=== PATIENT | female | born 1985 | race Caucasian/White ===

== ENCOUNTER 2017-01-18 13:09 | Emergency (ER) | payer OTHER ==
[2017-01-18 13:16] VITALS: BP 141/90
--- NOTE | 2017-01-18 14:34 | UC ---
UC General HPI - HPI Summary HPI Summary: complaint of rash on both thighs since 02/12 extremely itchy- has bed bugs in the house felt nauseated geneailzed abdominal pain yesterday vomiting and diarrhea that started this morning denies any blood in stool LMP currently denies dysuria denies fever but has felt chills today not taking any medication for symptoms - History of Current Complaint Hx Obtained From: Patient <Betsy Swartz - Last Filed: 01/18/17 14:29> <Yarelis Berg - Last Filed: 01/19/17 08:15> - History of Current Complaint Chief Complaint: UCGeneralIllness Stated Complaint: VOMITING Time Seen by Provider: 01/18/17 14:25 - Allergy/Home Medications Allergies/Adverse Reactions: Allergies Allergy/AdvReac Type Severity Reaction Status Date / Time Amoxicillin Allergy Intermediate Hives Verified 01/18/17 13:16 Penicillins Allergy Intermediate Hives Verified 01/18/17 13:16 Valproic Acid [From Depakote] Allergy Hives Verified 01/18/17 13:16 bee stings Allergy Severe Anaphylatic Uncoded 01/18/17 13:16 Shock PMH/Surg Hx/FS Hx/Imm Hx Previously Healthy: Yes Psychological History: Bipolar Disorder - Surgical History Surgical History: Yes Surgery Procedure, Year, and Place: Surgery on her Labia - Family History Known Family History: Positive: Unknown, Hypertension Negative: Diabetes - Social History Occupation: Disabled Lives: With Family Alcohol Use: None Substance Use Type: None, Marijuana Substance Use Comment - Amount & Last Used: ONCE A WEEK Smoking Status (MU): Current Every Day Smoker Type: Cigarettes Amount Used/How Often: 1 ppd Length of Time of Smoking/Using Tobacco: 11 years Have You Smoked in the Last Year: Yes Cessation Counseling: Patient Advised to Stop - Immunization History Most Recent Influenza Vaccination: unknown Most Recent Tetanus Shot: unknown Most Recent Pneumonia Vaccination: unknown <Betsy Swartz - Last Filed: 01/18/17 14:29> Review of Systems Constitutional: Chills Skin: Rash Eyes: Negative ENT: Negative Respiratory: Negative Cardiovascular: Negative Gastrointestinal: Vomiting, Diarrhea, Nausea Genitourinary: Negative Motor: Negative Neurovascular: Negative Musculoskeletal: Negative Neurological: Negative Psychological: Negative All Other Systems Reviewed And Are Negative: Yes <Betsy Swartz - Last Filed: 01/18/17 14:29> Physical Exam Triage Information Reviewed: Yes Appearance: No Pain Distress, Well-Nourished, Obese Vital Signs: Initial Vital Signs Temp 98.0 F 01/18/17 13:10 Pulse 80 01/18/17 13:10 Resp 20 01/18/17 13:10 BP 141/90 01/18/17 13:10 Pulse Ox 98 01/18/17 13:10 Vital Signs Reviewed: Yes Eyes: Positive: Conjunctiva Clear ENT: Positive: Pharynx normal, TMs normal Neck: Positive: No Lymphadenopathy Respiratory: Positive: Lungs clear, Normal breath sounds, No respiratory distress, No accessory muscle use Cardiovascular: Positive: RRR, No Murmur, Pulses Normal, Brisk Capillary Refill Abdomen Description: Positive: Nontender, No Organomegaly, Soft. Negative: CVA Tenderness (R), CVA Tenderness (L), Distended, Guarding Bowel Sounds: Positive: Hyperactive Musculoskeletal: Positive: No Edema Neurological: Positive: Alert Psychological Exam: Normal Skin: Positive: Other - both thighs with scattered pupules also on feet and arms <Betsy Swartz - Last Filed: 01/18/17 14:29> Vital Signs: Initial Vital Signs Temp 98.0 F 01/18/17 13:10 Pulse 80 01/18/17 13:10 Resp 20 01/18/17 13:10 BP 141/90 01/18/17 13:10 Pulse Ox 98 01/18/17 13:10 <Yarelis Berg - Last Filed: 01/19/17 08:15> Course/Dx - Course Course Of Treatment: exam completed. gastroenteritis- VSS -no point tenderness in abdomen- will treat with zofran and increase fluids- discussed s/s of when to seek emergent care. rash appears to be bed bug bites- will rx for benadryl cream to reduce itchiness - Differential Dx - Multi-Symptom Provider Diagnoses: gastroenteritis, bed bug bites, elevated blood pressure <Betsy Swartz - Last Filed: 01/18/17 14:29> Discharge <Betsy Swartz - Last Filed: 01/18/17 14:29> <Yarelis Berg - Last Filed: 01/19/17 08:15> - Discharge Plan Condition: Stable Disposition: HOME Prescriptions: Ondansetron TAB* [Zofran 4 MG Tab*] 4 mg PO Q6H PRN #12 tab PRN Reason: Nausea diPHENhydraMINE 2% CREAM(NF) [Benadryl 2% CREAM (NF)] 1 applic TOPICAL TID #1 tube Patient Education Materials: Bed Bugs (ED), Gastroenteritis (ED) Referrals: Su Peralta MD [Primary Care Provider] - Additional Instructions: Your blood pressure is elevated. Please contact your primary care provider within 1 -4 weeks for further evaluation. GASTROENTERITIS What is Gastroenteritis? Gastroenteritis is an inflammation of the stomach and bowel that is often called the stomach "flu.'' It should only last 1 or 2 days. You usually get gastroenteritis because you've been in contact with someone who's already infected or because you've eaten contaminated food, or drank contaminated water. Many different viruses can cause intestinal problems but the signs and symptoms are usually the same: watery diarrhea, abdominal cramps, and nausea or vomiting. Symptoms Might Include: Abdominal cramps Diarrhea Nausea Vomiting Blood or mucus in stools Muscle aches Headaches Fever Extreme exhaustion Treatment Recommendations: Decrease activity until you feel better or the diarrhea and vomiting are gone. Take clear liquids, such as xin nanci, cola, water, tea, broth, and gelatin, for the first 24 hours or until the diarrhea and vomiting stops. During the next 24 hours you may eat bland foods like cooked cereals, rice, soup, bread, crackers, baked potatoes, eggs, or applesauce. Do not eat fruits, vegetables, fried or spicy foods, bran, candy, dairy products (such as milk or ice cream), apple juice, or alcoholic beverages. You may go back to your normal diet after 2 to 3 days. Drink 8 to 12 glasses of liquid a day. Most of the problems with gastroenteritis are caused by loss of water through vomiting and diarrhea. You may take ibuprofen (Motrin, Advil) or acetaminophen (Tylenol) for fever and muscle aches. Call Your Doctor or Return Here IF: Your symptoms last for more than 3 days. You have severe pain in the abdomen (area around the stomach) or rectum. You have a high temperature. You find blood, mucus, or worms in your stool. You have signs of dehydration (water loss), including dry mouth, excessive thirst, crinkled skin, little or no urination, dizziness, or light-headedness. You have any other new symptoms that worry you. Attestation Statement User Type: Provider - I was available for consult. This patient was seen by the [facility]. The patient was not presented to, seen by, or examined by me. -Flores <Yarelis Berg - Last Filed: 01/19/17 08:15>
[2017-01-18] MEDS ORDERED: Ondansetron TAB* 4 MG PO ONE (14:36)
[2017-01-18] MEDS ORDERED: Ondansetron ODT TAB* 4 MG PO ONE (14:42)
== END 2017-01-18 14:49 | disposition home or self-care (01) ==
LOC: UCEAST 13:09
DX: K52.9 Noninfective gastroenteritis and colitis, unspecified (principal); T14.8 Other injury of unspecified body region; W57.XXXA Bitten or stung by nonvenomous insect and other nonvenomous arthropods, initial encounter; Y92.009 Unspecified place in unspecified non-institutional (private) residence as the place of occurrence of the external cause; R03.0 Elevated blood-pressure reading, without diagnosis of hypertension
CPT/HCPCS: 99212; A9270-GY; G0463

== ENCOUNTER 2022-06-24 16:28 | Inpatient (IN) ==
[2022-06-24 18:57] LABS: ABS Basophils 0.1 10^3/ul (0-0.2); ABS Eosinophils 0.3 10^3/ul (0-0.6); ABS Lymphocytes 3.1 10^3/ul (1.0-4.8); ABS Monocytes 0.5 10^3/ul (0-0.8); Hematocrit 40 % (35-47); Hemoglobin 12.9 g/dL (12.0-16.0); Lymphocyte % 34.4 %; Mean Corpuscular HGB Conc 33 g/dL (31-36); Mean Corpuscular Hemoglobin 28 pg (27-31); Mean Corpuscular Volume 86 fL (80-97); Mean Platelet Volume 10.5 fL (7.4-10.4); Nucleated Red Blood Cells % 0.1; Platelet Count 246 10^3/uL (150-450); Red Blood Count 4.64 10^6 /uL (3.70-4.87); Red Cell Distribution Width 13 % (10-15)
[2022-06-24 19:31] LABS: ALT 40 U/L (7-52); AST 33 U/L (13-39); Acetaminophen < 15 mcg/mL; Albumin 4.5 g/dL (3.2-5.2); Albumin/Globulin Ratio 1.9 (1-3); Alcohol, S < 13 mg/dL (<13); Alkaline Phosphatase 82 U/L (35-149); Anion Gap 7 mmol/L (2-11); Blood Urea Nitrogen 7 mg/dL (6-24); CO2 Carbon Dioxide 27 mmol/L (22-32); Calcium 9.5 mg/dL (8.6-10.3); Chloride 105 mmol/L (101-111); Globulin 2.4 g/dL (2-4); Glucose 88 mg/dL (70-100); Potassium 4.3 mmol/L (3.5-5.0); Salicylate < 2.50 mg/dL (<30); Sodium 139 mmol/L (135-145); Total Protein 6.9 g/dL (6.4-8.9); eGFR CKD-EPI 117.2 (>60)
[2022-06-24 19:45] LABS: TSH Ultra Thyroid Stim Horm 1.96 mcIU/mL (0.34-5.60)
[2022-06-25 00:24] LABS: Urine Appearance Clear; Urine Bilirubin Negative (Negative); Urine Blood Negative (Negative); Urine Color Yellow; Urine Glucose Negative (Negative); Urine Ketones Negative (Negative); Urine Nitrite Negative (Negative); Urine Protein Negative (Negative); Urine Urobilinogen 0.2 (Negative) (Negative); Urine pH 5.5 (5.0-9.0)
[2022-06-25 00:27] LABS: Urine Benzodiazepine Screen None Detected (None Detect); Urine Cannabinoids Screen None Detected (None Detect); Urine Opiates Screen None Detected (None Detect)
[2022-06-25] MEDS ORDERED: Nicotine PATCH 21 MG/24 HR PATCH TRANSDERM ONE (07:42)
[2022-06-25] MEDS ORDERED: Al Hydrox/Mg Hydrox/Simet LIQ 30 ML UDC PO PRN (09:51)
[2022-06-25] MEDS ORDERED: Nicotine GUM 4MG FRUIT FLAVOR PO PRN (10:00)
[2022-06-25] MEDS: Nicotine PATCH 21 MG/24 HR PATCH TRANSDERM SCH (13:59)
[2022-06-25] MEDS: chlorproMAZINE TAB 50 MG Q6H PRN AGITATION PO ×2 (14:20→23:13)
[2022-06-25] MEDS: Sulfamethox/Trimethoprim DS TAB 800/160 mg PO SCH (22:21)
[2022-06-26] MEDS: Sulfamethox/Trimethoprim DS TAB 800/160 mg PO SCH ×2 (07:32→20:53)
[2022-06-26] MEDS: Vitamin THERAPEUTIC TAB PO SCH (07:33)
[2022-06-26] MEDS: Nicotine PATCH 21 MG/24 HR PATCH TRANSDERM SCH (07:33)
[2022-06-26] MEDS ORDERED: OLANZapine 10 mg TAB*ODT ONE (16:41)
[2022-06-26] MEDS ORDERED: LORazepam 2 mg VIAL 1 ml IM ONE (17:45)
[2022-06-26] MEDS ORDERED: LORazepam 2 mg VIAL 1 ml ONE ×3 (17:45→20:04)
[2022-06-26] MEDS ORDERED: Lorazepam PYXIS KEY ONE ×2 (17:46→20:04)
[2022-06-27] MEDS: Vitamin THERAPEUTIC TAB PO SCH (08:02)
[2022-06-27] MEDS: Sulfamethox/Trimethoprim DS TAB 800/160 mg PO SCH ×2 (08:02→19:29)
[2022-06-27] MEDS: Nicotine PATCH 21 MG/24 HR PATCH TRANSDERM SCH (08:02)
[2022-06-27 08:41] LABS: Cholesterol 174 mg/dL; HDL Cholesterol 32.4 mg/dL; LDL Cholesterol 108 mg/dL; Triglycerides 166 mg/dL
[2022-06-27 08:46] LABS: HCG Pregnancy < 0.60 mIU/mL
[2022-06-27] MEDS ORDERED: LORazepam 2 mg VIAL 1 ml ONE (13:45)
[2022-06-27] MEDS ORDERED: Haloperidol 5 mg/ml SDV IV/IM 5 MG/ML AMP ONE (13:46)
[2022-06-28] MEDS: Nicotine PATCH 21 MG/24 HR PATCH TRANSDERM SCH (10:03)
[2022-06-28] MEDS: Sulfamethox/Trimethoprim DS TAB 800/160 mg PO SCH ×2 (10:03→20:14)
[2022-06-28] MEDS: Vitamin THERAPEUTIC TAB PO SCH (10:04)
[2022-06-29 07:52] VITALS: BP 130/77
[2022-06-29] MEDS: Vitamin THERAPEUTIC TAB PO SCH (08:19)
[2022-06-29] MEDS: Sulfamethox/Trimethoprim DS TAB 800/160 mg PO SCH (08:19)
[2022-06-29] MEDS: Nicotine PATCH 21 MG/24 HR PATCH TRANSDERM SCH (08:19)
== END 2022-06-29 12:59 | disposition home or self-care (01) | DRG 753 ==
LOC: ED 16:28 → EDHOLD 06-25 08:43 → BSU 06-25 09:11
PROVIDERS: ADMIT Psychiatry & Neurology Addiction Psychiatry; ATTEND Psychiatry & Neurology Addiction Psychiatry